=== PATIENT | male | born 1990 | race Caucasian/White ===

== ENCOUNTER 2018-03-19 07:08 | Emergency (ER) | payer SELFPAY ==
[~2018-03-19] VITALS: Ht 177.8 cm; Wt 95.0 kg
[2018-03-19] MEDS ORDERED: ONDANSETRON ODT 4 MG ONE (07:24)
[2018-03-19] MEDS ORDERED: ONDANSETRON ODT 4 MG PO ONE (07:30)
[2018-03-19 10:29] VITALS: BP 117/74
== END 2018-03-19 11:43 | disposition left against medical advice (07) ==
LOC: ED 11:25
DX: F10.129 Alcohol abuse with intoxication, unspecified (principal)
CPT/HCPCS: 99283; Q0162